=== PATIENT | male | born 1995 | race Caucasian/White ===

== ENCOUNTER 2017-10-01 21:27 | Emergency (ER) | payer OTHER ==
[2017-10-01] MEDS: BUPIVACAINE 0.25% (MPF) 30 ML INJ INJ (23:30)
[2017-10-02] MEDS: IBUPROFEN 600 MG TAB PO (00:30)
[2017-10-02] MEDS: DIPHTH/TET/ACEL PERTUSS (ADULT) 0.5 ML VIAL IM* (00:31)
[2017-10-02] MEDS: KETOROLAC 15 MG INJ IV (00:34)
== END 2017-10-02 02:54 | disposition home or self-care (01) ==
LOC: FTE 21:27
DX: S61.011A Laceration without foreign body of right thumb without damage to nail, initial encounter (principal); J45.909 Unspecified asthma, uncomplicated; W26.0XXA Contact with knife, initial encounter; Y92.9 Unspecified place or not applicable; Z23 Encounter for immunization
CPT/HCPCS: 12001; 90715; 96374; 99284-25